=== PATIENT | female | born 1950 ===

== ENCOUNTER 2025-03-22 22:39 | Inpatient (IN) | payer MEDICARE ==
[~2025-03-22] VITALS: Ht 162.6 cm; Wt 55.5 kg
[2025-03-22 23:09] VITALS: BP 139/61
[2025-03-23] VITALS (8 sets, daily range): BP systolic 130–177; BP diastolic 54–86
[2025-03-23] MEDS ORDERED: GABAPENTIN600 MG PO (00:21)
[2025-03-23] MEDS ORDERED: AMLO5 PO (00:22)
[2025-03-23] MEDS ORDERED: JARDIANCE10 MG PO (00:22)
[2025-03-23] MEDS ORDERED: DULO30 PO (00:22)
[2025-03-23] MEDS ORDERED: Prinivil10 MG PO (00:23)
[2025-03-23] MEDS ORDERED: METO50ER PO (00:23)
[2025-03-23] MEDS ORDERED: ATOR80 PO (00:23)
[2025-03-23] MEDS ORDERED: METF500C PO (00:25)
[2025-03-23] MEDS ORDERED: LORA.5 PO (00:26)
[2025-03-23] MEDS ORDERED: ELIQUIS5 M2 PO (00:28)
[2025-03-23] MEDS ORDERED: Vancomycin (Pharmacy Consult) IV SCH (00:35)
[2025-03-23] MEDS ORDERED: Piperacillin/Tazobactam Sod 3.375 GM in NS 100 ML IV SCH (00:45)
[2025-03-23 01:12] LABS: BASOPHILS ABSOLUTE AUTO 0.06 K/mm3 (0.00-0.23); BASOPHILS PERCENT AUTO 1 % (0-2); EOSINOPHILS ABSOLUTE AUTO 0.15 K/mm3 (0.00-0.68); EOSINOPHILS PERCENT AUTO 1 % (0-6); Hematocrit 39.4 % (33.0-51.0); Hemoglobin 12.5 g/dL (11.5-16.0); IMMATURE GRAN ABSOLUTE AUTO 0.04 K/mm3 (0.00-0.10); IMMATURE GRAN PERCENT AUTO 0 % (0-1); LYMPHOCYTES ABSOLUTE AUTO 1.71 K/mm3 (0.84-5.20); LYMPHOCYTES PERCENT AUTO 15 % (21-46); MONOCYTES ABSOLUTE AUTO 0.78 K/mm3 (0.16-1.47); MONOCYTES PERCENT AUTO 7 % (4-13); Mean Corpuscular HGB Conc 31.7 g/dL (31.5-36.5); Mean Corpuscular Volume 93 fL (80-100); NEUTROPHILS ABSOLUTE AUTO 8.62 K/mm3 (1.96-9.15); NEUTROPHILS PERCENT AUTO 76 % (41-73); NRBC ABSOLUTE 0.00 K/mm3 (0.00-0.02); NRBC Auto 0.0 /100 WBC (0.0-0.2); Platelet Count 312 K/mm3 (150-400); RDW Coefficient Variation 16.0 % (11.7-14.2); RDW Standard Deviation 54.6 fL (35.1-46.3)
[2025-03-23 01:38] LABS: Alanine Aminotransfer (ALT/SGP 19.0 U/L (12-78); Albumin, Blood 2.7 g/dL (3.4-5.0); Albumin/Globulin Ratio 0.6 (0.8-1.8); Anion Gap 11.0 mmol/L (3-11); Aspartate Aminotrans (AST/SGOT 32.0 U/L (12-37); Bilirubin, Total 0.6 mg/dL (0.1-1.0); Blood Urea Nitrogen 16.0 mg/dL (8-24); CO2, Blood 27.0 mmol/L (21-32); Calcium, Blood 8.3 mg/dL (8.5-10.1); Chloride, Blood 105.0 mmol/L (98-108); Creatinine, Blood 1.25 mg/dL (0.40-1.00); Globulin, Blood 4.2 g/dL (2.2-4.0); Glucose, Blood 188.0 mg/dL (70-99); Magnesium, Blood 1.9 mg/dL (1.6-2.4); Potassium, Blood 3.6 mmol/L (3.5-5.5); Sodium, Blood 139.0 mmol/L (136-145); Thyroid Stimulating Hormone 9.29 uIU/mL (0.360-4.800); Total Protein, Blood 6.9 g/dL (6.4-8.2)
[2025-03-23] MEDS ORDERED: Piperacillin/Tazobactam Sod 2.25 GM in NS 50 ML IV SCH (01:59)
[2025-03-23] MEDS ORDERED: Polyethylene Glycol 3350 17 gm PO PRN (02:05)
[2025-03-23] MEDS ORDERED: OxyCODONE 5 mg/Acetamin 325 mg TABLET PO PRN (02:05)
[2025-03-23] MEDS ORDERED: Levothyroxine Sodium 0.137 MG Tab PO SCH (06:00)
[2025-03-23] MEDS ORDERED: Insulin Regular 100 UNIT/ML 10ML Vial SC SCH ×2 (06:00→11:30)
--- NOTE | 2025-03-23 07:29 | NUR ---
SHIFT SUMMARY; AFTER ADMIT, PATIENT WAS MADE NPO AT [facility] FOR POSSIBLE SURGERY. TELE SR 70'S. ABLE [place] STAND [place] [facility] PICTURES TAKEN OF BOTH FEET.
[2025-03-23] MEDS ORDERED: NS 250 ML IV PRN (08:15)
[2025-03-23] MEDS ORDERED: DULoxetine HCL 30 MG Cap DR PO SCH (09:00)
[2025-03-23] MEDS ORDERED: Lactobacil 2-S.Thermo-Bifido 1 1 Cap PO SCH (09:00)
[2025-03-23] MEDS ORDERED: EUTHYROX125 MCG PO (11:33)
[2025-03-23] MEDS ORDERED: Coumadin2 MG PO (11:35)
[2025-03-23] MEDS ORDERED: XULTOPHY SC (11:36)
--- NOTE | 2025-03-23 16:01 | NUR ---
SHIFT SUMMARY MS VAIL IS ABLE TO ANSWER ORIENTATION QUESTIONS APPROPRIATELY, SEEMS A LITTLE FORGETFUL TO CONVERSATION AT TIMES. DIET WAS RESTARTED THIS MORNING AFTER SPEAKING WITH DR DAS. PLAN FOR POSSIBLE SURGERY TOMORROW. BLOOD PRESSURE ELEVATED, DR MILLER AWARE, NO NEW ORDERS AT THIS TIME. 1 PERSON ASSIST TO BEDSIDE COMMODE WITH WALKER. FREQUENT STOOL AND URINATION WITH SOME LOOSE STOOL. C/O HEEL PAIN MOSTLY TO RIGHT HEEL. REPOSITIONED AND MEDICATED WITH SOME RELIEF. SHE SMOKES TOBACCO AT HOME, SAID SHE HAS CUT BACK OVER THE PAST FEW MONTHS, NICOTENE PATCH ORDERED AND PLACED. SHE DENIES HAVING ANY IGNITION SOURCES. SHE VERBALISED UNDERSTANDING OF EDUCATION ON FALL PRECAUTIONS AND HAS BEEN USING THE CALL LIGHT APPROPRIATELY. BED LOW, CALL LIGHT IN REACH, BED ALARM ON.
[2025-03-23] MEDS ORDERED: Insulin Glargine-Yfgn 100 Unit/mL 3 ML SYR SC SCH (21:00)
[2025-03-24] VITALS (15 sets, daily range): BP systolic 118–160; BP diastolic 60–87
[2025-03-24] MEDS ORDERED: Insulin Human Lispro 100 Units/ML 3ML Syringe SC SCH (07:30)
[2025-03-24 07:42] LABS: BASOPHILS ABSOLUTE AUTO 0.05 K/mm3 (0.00-0.23); BASOPHILS PERCENT AUTO 1 % (0-2); EOSINOPHILS ABSOLUTE AUTO 0.22 K/mm3 (0.00-0.68); EOSINOPHILS PERCENT AUTO 4 % (0-6); Hematocrit 37.2 % (33.0-51.0); Hemoglobin 11.9 g/dL (11.5-16.0); IMMATURE GRAN ABSOLUTE AUTO 0.01 K/mm3 (0.00-0.10); IMMATURE GRAN PERCENT AUTO 0 % (0-1); LYMPHOCYTES ABSOLUTE AUTO 1.52 K/mm3 (0.84-5.20); LYMPHOCYTES PERCENT AUTO 27 % (21-46); MONOCYTES ABSOLUTE AUTO 0.51 K/mm3 (0.16-1.47); MONOCYTES PERCENT AUTO 9 % (4-13); Mean Corpuscular HGB Conc 32.0 g/dL (31.5-36.5); Mean Corpuscular Volume 91 fL (80-100); NEUTROPHILS ABSOLUTE AUTO 3.42 K/mm3 (1.96-9.15); NEUTROPHILS PERCENT AUTO 60 % (41-73); NRBC ABSOLUTE 0.00 K/mm3 (0.00-0.02); NRBC Auto 0.0 /100 WBC (0.0-0.2); Platelet Count 276 K/mm3 (150-400); RDW Coefficient Variation 15.9 % (11.7-14.2); RDW Standard Deviation 52.5 fL (35.1-46.3)
[2025-03-24 07:58] LABS: Anion Gap 8.0 mmol/L (3-11); Blood Urea Nitrogen 17.0 mg/dL (8-24); CO2, Blood 26.0 mmol/L (21-32); Calcium, Blood 8.4 mg/dL (8.5-10.1); Chloride, Blood 106.0 mmol/L (98-108); Creatinine, Blood 1.03 mg/dL (0.40-1.00); Glucose, Blood 126.0 mg/dL (70-99); Potassium, Blood 3.3 mmol/L (3.5-5.5); Sodium, Blood 137.0 mmol/L (136-145)
--- NOTE | 2025-03-24 11:48 | NUR ---
RN NOTE MS VAIL IS ABLE TO ANSWER ORIENTATION QUESTIONS BUT SHE IS VERY FORGETFUL, FREQUENT REPETATIVE QUESTIONS. 1 PERSON ASSIST UP TO THE BSC. URINATING LESS FREQUENTLY TODAY THAN YESTERDAY (YESTERDAY WAS VERY FREQUENT). NPO THIS AM FOR SURGERY. MINIMAL P[AIN TO FEET THIS MORNING.
--- NOTE | 2025-03-24 11:59 | NUR ---
TO OR VIA WHEELCHAIR
[2025-03-24] MEDS ORDERED: Piperacillin/Tazobactam Sod 3.375 GM in NS 100 ML IV SCH (12:00)
[2025-03-24] MEDS ORDERED: Bupivacaine 0.5% HCl 5 MG/ML 30MLVIAL ONE (12:32)
[2025-03-24] MEDS ORDERED: FentaNYL Citrate 50 MCG/ML 2 ML Injection ONE (12:59)
[2025-03-24] MEDS ORDERED: HYDROmorphone HCl/Pf 1MG SYR IV PRN (13:10)
[2025-03-24] MEDS ORDERED: Albuterol 2.5 MG/3 ML VIAL INH PRN (13:10)
[2025-03-24] MEDS ORDERED: FentaNYL Citrate 50 MCG/ML 2 ML Injection IV PRN ×2 (13:10→13:15)
[2025-03-24] MEDS ORDERED: Ondansetron HCl 2 MG / ML 2ML Vial IV PRN (13:10)
[2025-03-24] MEDS ORDERED: Phenylephrine HCl 100 MCG/ML-NS 10MLSYR (1MG/10ML) ONE (13:14)
[2025-03-24] MEDS ORDERED: Rocuronium Bromide 10 MG/ML 5ML Injection IV ONE (13:14)
[2025-03-24] MEDS ORDERED: Morphine Sulfate 4 MG/1 ML Injection IV PRN (13:15)
[2025-03-24] MEDS ORDERED: Sugammadex Sodium 200 MG/2ML SDV (100 MG/ML) ONE (13:15)
--- NOTE | 2025-03-24 18:21 | NUR ---
SHIFT SUMMARY MS VAIL IS CONSISTANTLY ABLE TO ANSWER ORIENTATION QUESTIONS BUT IS VERY FORGETFUL. SHE REPEATS REQUESTS, FOR EXAMPLE TO SMOKE, WHEN SHE HAS BEEN EDUCATED AND REITERATED ON THE NO SMOKING POLICY AND HAS A NICOTENE PATCH ON HER SKIN. HER CONVERSATION IS CONFUSED AND FORGETFUL. SHE RETURNED FROM OR AT 1420HRS WITH AISHA WRAP DRESSINGS TO BOTH LEGS. MINIMAL TOES EXPOSED. HER TOES ARE COOL TO TOUCH, SHE DENIES NUMBNESS OR TINGLING AND SHE DENIES ANY PAIN. SHE HAS EATEN WELL WITHOUT NAUSEA. SHE HAS VOIDED SINCE SURGERY. LEGS ELEVATED ON A PILLOW IN BED. BED LOW, BED ALARM ON. CALL LIGHT IN REACH.
[2025-03-24 20:42] LABS: Vancomycin, Trough 17.3 ug/mL (5.0-10.0)
[2025-03-25 03:04] VITALS: BP 128/73
[2025-03-25 06:13] LABS: BASOPHILS ABSOLUTE AUTO 0.01 K/mm3 (0.00-0.23); BASOPHILS PERCENT AUTO 0 % (0-2); EOSINOPHILS ABSOLUTE AUTO 0.00 K/mm3 (0.00-0.68); EOSINOPHILS PERCENT AUTO 0 % (0-6); Hematocrit 36.0 % (33.0-51.0); Hemoglobin 11.5 g/dL (11.5-16.0); IMMATURE GRAN ABSOLUTE AUTO 0.02 K/mm3 (0.00-0.10); IMMATURE GRAN PERCENT AUTO 1 % (0-1); LYMPHOCYTES ABSOLUTE AUTO 0.60 K/mm3 (0.84-5.20); LYMPHOCYTES PERCENT AUTO 14 % (21-46); MONOCYTES ABSOLUTE AUTO 0.21 K/mm3 (0.16-1.47); MONOCYTES PERCENT AUTO 5 % (4-13); Mean Corpuscular HGB Conc 31.9 g/dL (31.5-36.5); Mean Corpuscular Volume 91 fL (80-100); NEUTROPHILS ABSOLUTE AUTO 3.54 K/mm3 (1.96-9.15); NEUTROPHILS PERCENT AUTO 81 % (41-73); NRBC ABSOLUTE 0.00 K/mm3 (0.00-0.02); NRBC Auto 0.0 /100 WBC (0.0-0.2); Platelet Count 277 K/mm3 (150-400); RDW Coefficient Variation 15.9 % (11.7-14.2); RDW Standard Deviation 52.7 fL (35.1-46.3)
[2025-03-25 06:38] LABS: Anion Gap 9.0 mmol/L (3-11); Blood Urea Nitrogen 23.0 mg/dL (8-24); CO2, Blood 23.0 mmol/L (21-32); Calcium, Blood 8.5 mg/dL (8.5-10.1); Chloride, Blood 111.0 mmol/L (98-108); Creatinine, Blood 1.14 mg/dL (0.40-1.00); Glucose, Blood 185.0 mg/dL (70-99); Potassium, Blood 4.1 mmol/L (3.5-5.5); Sodium, Blood 139.0 mmol/L (136-145)
[2025-03-25 07:29] VITALS: BP 141/67
[2025-03-25 11:58] VITALS: BP 168/80
--- NOTE | 2025-03-25 13:49 | NUR ---
pt sittin in chair and had removed dressing from lle and was washing incision site with wet napkin.pt states removed because "wants to go up on the hill and smoke" pt denies having any cigarettes or ignition source in room. lle incision cleanse [facility] wound spinning frame cleaner, telfa applied to incision site and wrapped in coban. maria esther wrap placed over coban
[2025-03-25 15:59] VITALS: BP 177/74
[2025-03-25 17:33] VITALS: BP 163/77
--- NOTE | 2025-03-25 18:25 | NUR ---
SHIFT SUMMARY PT STARTED THE DAY A&OX4 ABLE TO ANSWER ORIENTATION QUESTIONS, BUT SLEEPY FROM ATIVAN GIVEN AT 0600. THE DAY PROGRESSED PT GETTING INCREASINGLY MORE CONFUSED AND WAS ORIENTED TO SELF ONLY WITH VISUAL HALUCINATIONS, FIXATED ON GOING OUTSIDE TO SMOKE, YELLING OUT TO DAUGHTERS WHO ARE NOT HERE, AND BEHAVING IMPULSIVELY BY GETTING OUT OF BED AND REMOVING BANDAGES ON TOE AMPUTATION SITE. WOUND CARE DONE, UPDATED PICTURE IN CHART. PT PAIN MANAGED WITH PRN PERCOCET AND TYLENOL. CONT/INC BLADDER AND BOWEL, 1PA TO BSC. RA, SR IN 70S ON TELE, HTN, HOME LISINOPRIL RESUMED. PT TRANSFERRED TO ROOM 345 AT END OF SHIFT, ALL BELONGINGS WITH PT, REPORT GIVEN TO BEAN SEYMOUR.
--- NOTE | 2025-03-25 18:28 | NUR ---
TRANSFER NOTE TOOK OVER PT CARE AT 1828. GOT REPORT FROM [address]. PT EYES CLOSED UNLABORED EVEN RESPIRATIONS. NO ACUTE CHANGES NOTES. PT IN BED, BED IN LOWEST POSITION, CALL LIGHT IN REACH. IV ANTIBIOTIC INFUSING.
[2025-03-25 19:55] VITALS: BP 126/83
[2025-03-26 00:44] VITALS: BP 105/59
--- NOTE | 2025-03-26 03:11 | NUR ---
SHIFT SUMMARY PATIENT HAS APPEARED TO SLEEP COMFORTABLY TONIGHT. SHE HAS BEEN INCONTINENT OF URINE AND IS WEARING AN ATTENDS. SHE IS ORIENTED X3 TONIGHT AND USING HER CALL LIGHT APPROPRIATELY. SHE HAS BEEN MEDICATED FOR PAIN X1 ON THIS SHIFT SO FAR. IV ABX HAVE INFUSED WITHOUT COMPLICATIONS. SHE HAS HER CALL LIGHT WITHIN REACH AND HER BED ALARM IS SET. SAFETY PRECAUTIONS ARE BEING MAINTAINED.
[2025-03-26 04:21] VITALS: BP 145/69
[2025-03-26 05:36] LABS: BASOPHILS ABSOLUTE AUTO 0.04 K/mm3 (0.00-0.23); BASOPHILS PERCENT AUTO 1 % (0-2); EOSINOPHILS ABSOLUTE AUTO 0.13 K/mm3 (0.00-0.68); EOSINOPHILS PERCENT AUTO 2 % (0-6); Hematocrit 38.1 % (33.0-51.0); Hemoglobin 12.2 g/dL (11.5-16.0); IMMATURE GRAN ABSOLUTE AUTO 0.02 K/mm3 (0.00-0.10); IMMATURE GRAN PERCENT AUTO 0 % (0-1); LYMPHOCYTES ABSOLUTE AUTO 1.91 K/mm3 (0.84-5.20); LYMPHOCYTES PERCENT AUTO 25 % (21-46); MONOCYTES ABSOLUTE AUTO 0.57 K/mm3 (0.16-1.47); MONOCYTES PERCENT AUTO 7 % (4-13); Mean Corpuscular HGB Conc 32.0 g/dL (31.5-36.5); Mean Corpuscular Volume 92 fL (80-100); NEUTROPHILS ABSOLUTE AUTO 5.03 K/mm3 (1.96-9.15); NEUTROPHILS PERCENT AUTO 65 % (41-73); NRBC ABSOLUTE 0.00 K/mm3 (0.00-0.02); NRBC Auto 0.0 /100 WBC (0.0-0.2); Platelet Count 301 K/mm3 (150-400); RDW Coefficient Variation 16.1 % (11.7-14.2); RDW Standard Deviation 54.5 fL (35.1-46.3)
[2025-03-26 06:05] LABS: Anion Gap 8.0 mmol/L (3-11); Blood Urea Nitrogen 21.0 mg/dL (8-24); CO2, Blood 27.0 mmol/L (21-32); Calcium, Blood 8.5 mg/dL (8.5-10.1); Chloride, Blood 106.0 mmol/L (98-108); Creatinine, Blood 1.11 mg/dL (0.40-1.00); Glucose, Blood 163.0 mg/dL (70-99); Potassium, Blood 4.0 mmol/L (3.5-5.5); Sodium, Blood 137.0 mmol/L (136-145)
[2025-03-26 07:37] VITALS: BP 127/80
[2025-03-26 13:22] VITALS: BP 139/69
[2025-03-26 19:22] VITALS: BP 118/61
[2025-03-26 20:10] LABS: Vancomycin, Trough 24.8 ug/mL (5.0-10.0)
[2025-03-26] MEDS ORDERED: Insulin Glargine-Yfgn 100 Unit/mL 3 ML SYR SC SCH (21:00)
[2025-03-26 23:43] VITALS: BP 151/75
--- NOTE | 2025-03-27 03:20 | NUR ---
SHIFT SUMMARY PATIENT HAS APPEARED TO SLEEP COMFORTABLY TONIGHT. SHE WAS MEDICATED WITH A PERCOCET AT BEDTIME. PATIENT HAS BEEN ORIENTED X3 TONIGHT. IV ABX HAVE INFUSED WITHOUT COMPLICATIONS. PATIENT HAS HER CALL LIGHT WITHIN REACH AND HER BED ALARM IS SET. SAFETY PRECAUTIONS ARE BEING MAINTAINED.
[2025-03-27 03:38] VITALS: BP 147/71
[2025-03-27 06:56] LABS: Anion Gap 10.0 mmol/L (3-11); Blood Urea Nitrogen 20.0 mg/dL (8-24); CO2, Blood 26.0 mmol/L (21-32); Calcium, Blood 9.1 mg/dL (8.5-10.1); Chloride, Blood 103.0 mmol/L (98-108); Creatinine, Blood 1.22 mg/dL (0.40-1.00); Glucose, Blood 185.0 mg/dL (70-99); Potassium, Blood 3.6 mmol/L (3.5-5.5); Sodium, Blood 135.0 mmol/L (136-145)
[2025-03-27 07:34] VITALS: BP 152/91
[2025-03-27] MEDS ORDERED: CefTRIAXone Sodium 2,000 MG in NS 100 ML IV SCH (09:00)
[2025-03-27 11:43] VITALS: BP 157/94
[2025-03-27 16:01] VITALS: BP 144/86
--- NOTE | 2025-03-27 19:01 | NUR ---
NO CHANGES, GOOD APPETITE, CLEARLY MAKES NEEDS KNOWN, CALL LIGHT WITH IN REACH
[2025-03-27 19:48] VITALS: BP 143/83
--- NOTE | 2025-03-28 03:03 | NUR ---
SHIFT SUMMARY PATIENT HAS APPEARED TO SLEEP COMFORTABLY THROUGHOUT THE NIGHT. SHE HAS BEEN INCONTINENT OF URINE BUT HER PAIN HAS BEEN WELL CONTROLLED WITH PER PRN PERCOCET. PATIENT IS ORIENTED X3. SHE HAS HER CALL LIGHT WITHIN REACH AND HER BED ALARM IS SET. SAFETY PRECAUTIONS ARE BEING MAINTAINED.
[2025-03-28 04:15] VITALS: BP 179/81
[2025-03-28 06:37] LABS: Anion Gap 8.0 mmol/L (3-11); Blood Urea Nitrogen 20.0 mg/dL (8-24); CO2, Blood 28.0 mmol/L (21-32); Calcium, Blood 9.1 mg/dL (8.5-10.1); Chloride, Blood 103.0 mmol/L (98-108); Creatinine, Blood 1.09 mg/dL (0.40-1.00); Glucose, Blood 240.0 mg/dL (70-99); Potassium, Blood 3.6 mmol/L (3.5-5.5); Sodium, Blood 135.0 mmol/L (136-145)
[2025-03-28 07:35] VITALS: BP 179/68
[2025-03-28 15:25] VITALS: BP 139/65
--- NOTE | 2025-03-28 18:18 | NUR ---
SHIFT SUMMARY PT A&OX2-3 W/ CONFUSION AND CALLING OUT AT TIMES, VSS, STAND/PIVOT TO THE BSC W/ ASSIST, TOLERATING PO, VOIDING, AND PAIN MANAGED PER EMAR. WOUND/CARE DRESSING COMPLETED PER ORDER. PT WORKED W/ PHYSICAL THERAPY, SEE THERAPY NOTE. NO OTHER ACUTE CHANGES. CALL LIGHT WITHIN REACH AND CHAIR ALARM ON FOR SAFETY.
[2025-03-28 19:32] VITALS: BP 149/68
[2025-03-28] MEDS ORDERED: Insulin Glargine-Yfgn 100 Unit/mL 3 ML SYR SC SCH (21:00)
--- NOTE | 2025-03-29 04:28 | NUR ---
Shift Summary AOx3, does not know date. Pleasant/cooperative. Patient loudly verbalized need for assistance to use bathroom. She waits patiently and has not been impulsive. Daughter Jennie requested a return call for updates on patient. Phone number is [phone], provided updates and answered questions to the best of my knowledge. Compliant with weight bearing precautions and wearing the surgical boot. 1p stand pivot to commode, patient seems to have urgency with voids. Had some darker small bm's while urinating. Denies n/v, dizziness, shortness of breath. Medicated x 1 for pain with good effect. Pt looking forward to discharge to a SNF.
[2025-03-29 05:34] VITALS: BP 158/75
[2025-03-29 07:11] LABS: Anion Gap 8.0 mmol/L (3-11); Blood Urea Nitrogen 26.0 mg/dL (8-24); CO2, Blood 29.0 mmol/L (21-32); Calcium, Blood 9.2 mg/dL (8.5-10.1); Chloride, Blood 101.0 mmol/L (98-108); Creatinine, Blood 1.13 mg/dL (0.40-1.00); Glucose, Blood 236.0 mg/dL (70-99); Potassium, Blood 3.6 mmol/L (3.5-5.5); Sodium, Blood 134.0 mmol/L (136-145)
[2025-03-29 07:33] VITALS: BP 160/76
[2025-03-29] MEDS ORDERED: Percocet 5-3251 EACH PO (11:22)
[2025-03-29] MEDS ORDERED: MIRALAX17 GM PO (11:23)
[2025-03-29] MEDS ORDERED: VISBIOME 112.51 EACH PO (11:27)
[2025-03-29] MEDS ORDERED: AMOCLA875 PO (11:27)
[2025-03-29 16:38] VITALS: BP 112/75
--- NOTE | 2025-03-29 16:43 | NUR ---
SHIFT SUMMARY: A&OX2-3 THIS SHIFT. PLEASANT AND COOPERATIVE WITH CARE PROVIDED. UP TO CHAIR A FEW TIMES TROUGHOUT SHIFT. PT HAS HAD A GOOD APPETITE THIS SHIFT AND HAS REQUESTED SNACKS MULTIPLE TIMES. DENIES GENERALIZED PAIN AND CHEST PAIN. O2 SATS >90% AND DENIES SHORTNESS OF BREATH. UP IN CHAIR FOR DINNER AT THIS TIME WITH CALL LT NEAR. CHAIR ALARM ON FOR SAFETY.
--- NOTE | 2025-03-29 17:53 | NUR ---
THIS RN CONTACTED PT'S DAUGHTER AT 1300 AND INFORMED HER OF D/C ORDER. DAUGHTER STATED SHE WOULD TALK W/ FAMILY ABOUT TRANSPORTING PT HOME AND CALL BACK W/ TRANSPORTATION PLAN. PT'S DAUGHTER HAS NOT CALLED BACK AT THIS TIME.
[2025-03-29 19:21] VITALS: BP 111/73
--- NOTE | 2025-03-30 04:48 | NUR ---
SHIFT SUMMARY PT HERE FOR OSTEOMYELITIS. SHE HAS BEEN RESTING IN BED COMFORTABLY OVERNIGHT. SHE HAS BEEN AOX3-4, CALM AND COOPERATIVE. SHE HAS HAD EPISODES OF CONFUSION AND FORGETFULNESS, AND SHE HAS NOT CALLED APPROPRIATELY OVERNIGHT. SHE IS BLIND IN R EYE. PT [place] BE[place] [facility] [place] SHE HAS BED ALARM ARMED. PT HAS L 2ND TOE AMPUTATION AND USES BOOT FOR AMBULATION. PT HAS HAD NO COMPLAINTS OVERNIGHT. PT HAD UNEVENTFUL NIGHT.
[2025-03-30 05:21] VITALS: BP 152/87
[2025-03-30 07:25] VITALS: BP 160/84
--- NOTE | 2025-03-30 18:06 | NUR ---
SUMMARY- PT A/O X2-3. LABILE MOODS, MOSTLY PLEASANTLY CONFUSED AND COOPERATIVE. FIRST THING THIS AM PT IMPULSIE SET OFF BED ALARM, SBA TO CHAIR. SAT IN CHAIR ALL DAY AND USED CALL LIGHT FOR ASSIST. HX OF R EYE BLINDNESS, SENSORY BUTTON IN USE HAND HIDE STRETCHER LIGHT. PT BEGAN TO BECOME VERY ANXIOUS ASKING FOR A CIGARETTE MID-AFTERNOON, PT NEAR [place] IN THE SUN AND PT RESTED AND CALMED. MEDICATED X2 WITH PERCOCET FOR L FOOT DISCOMFORT WITH STATED RELEIF. CALLED FAMILY TO DISCUSS PT'S DISCHARGE, DAUGHTER WOODROW IS NOT COMFORTABLE WITH MOM GOING HOME SHE IS BLIND AND HAS NO CAREGIVER. WORKING WIHT SHEAR SCRAPMAN TO WORK OUT A SAFE DISCHARGE. VSS, VOIDING, HAD MULT SOFT FLOATING BM.S TODAY. HIGH BLOOD SUGARS TODAY, MAY HAVE BEEN APPLEJUICE AND MIRILAX THIS AM. PT WAS ABLE TO SPEAK WITH SUNDAYLEXI WOODROW ON THE PHONE. WILL REOPRT TO NISSA SEYMOUR
[2025-03-30 19:16] VITALS: BP 122/76
[2025-03-31 03:13] VITALS: BP 119/88
--- NOTE | 2025-03-31 06:24 | NUR ---
SHIFT SUMMARY PT HERE FOR OSTEOMYLITIS OF L FOOT. SHE HAS BEEN AOX2-3, WITH EPISODES OF CONFUSION AND FORGETFULNESS. PT HAS ALSO BEEN MORE IMPULSIVE TN, ATTEMPTING TO GET OOB A COUPLE TIMES. BED ALARM REMAINS ARMED. PT IS 1PA PIVOT TO BS. PT HAS HAD 1 INCONTINENT EPISODE. PT HAS BEEN MORE ANXIOUS TO GO HOME, AND HAS EXPRESSED FRUSTRATION OVER CURRENT SITUATION. PT HAS L 2ND TOE AMPUTATION AND R 5TH TOE WOUND, WITH WOUND CARE DONE OVERNIGHT. NO ACUTE EVENTS OVERNIGHT.
[2025-03-31 07:21] VITALS: BP 130/76
[2025-03-31 15:58] VITALS: BP 129/65
--- NOTE | 2025-03-31 17:25 | NUR ---
SHIFT SUMMARY NO ACUTE CHANGES, A/Ox3 WITH SOME FORGETFULNESS. PT DENIES PAIN T/O SHIFT, AND DENIES PAIN WITH WOUND CARE. WOUND CARE COMPLETED PER ORDERS. SOME SWELLING NOTED IN R FOOT - ELEVATED IN RECLINER CURRENTLY. 1 ASSIST WITH FWW WITH SURGICAL SHOE ON LEFT FOOT. GOOD ORAL INTAKE. BM TODAY. INSULIN ADMINISTERED PER SLIDING SCALE. PT CURRENTLY RESTING IN RECLINER WITH CHAIR ALARM ON AND CALL LIGHT WITHIN REACH. AWAITING SNF PLACEMENT.
[2025-03-31 19:10] VITALS: BP 123/63
--- NOTE | 2025-04-01 00:38 | NUR ---
NURSES NOTE ASSUMING CARE OF PATIENT AT THIS TIME. SHIFT REPORT HAS BEEN GIVEN. PATIENT APPEARS TO BE SLEEPING COMFORTABLY. BREATHS ARE EVEN AND UNLABORED. BED ALARM IS ON. CALL LIGHT IS WITHIN REACH. SAFETY PRECAUTIONS ARE BEING MAINTAINED.
--- NOTE | 2025-04-01 03:26 | NUR ---
SHIFT SUMMARY PATIENT HAS APPEARED TO SLEEP COMFORTABLY DURING THIS SHIFT. VSS. PATIENT HAS BEEN ORIENTED X3. SHE HAS HER CALL LIGHT WITHIN REACH AND HER BED ALARM IS SET. SAFETY PRECAUTIONS ARE BEING MAINTAINED.
[2025-04-01 03:31] VITALS: BP 127/66
[2025-04-01 07:04] VITALS: BP 141/77
[2025-04-01] MEDS ORDERED: Insulin Glargine-Yfgn 100 Unit/mL 3 ML SYR SC SCH (09:00)
[2025-04-01 09:25] LABS: Anion Gap 6.0 mmol/L (3-11); Blood Urea Nitrogen 25.0 mg/dL (8-24); CO2, Blood 27.0 mmol/L (21-32); Calcium, Blood 9.1 mg/dL (8.5-10.1); Chloride, Blood 103.0 mmol/L (98-108); Creatinine, Blood 0.9 mg/dL (0.40-1.00); Glucose, Blood 258.0 mg/dL (70-99); Potassium, Blood 4.0 mmol/L (3.5-5.5); Sodium, Blood 132.0 mmol/L (136-145)
--- NOTE | 2025-04-01 14:41 | NUR ---
DISCHARGE 1420 PT AOX4, COOPERATIVE, ABLE TO MAKE NEEDS KNOWN. PT IS 1 PERSON ASSIST TO BATHROOM FOR VOIDING. ON ROOM AIR. [employer]. CALLED KASSI AGUILERA AND GAVE REPORT TO "TONY". ALSO INFORMED TONY THAT PT LEFT PHONE BEHIND AT HOSPITAL AND THAT THE WRAPPING MACHINE OPERATOR INFORMED THIS RN THAT THE WRAPPING MACHINE OPERATOR COULD DROP IT OFF AT [facility] AFTER CLOCKING OFF FROM THE HOSPITAL. HARD SCRIPT SENT WITH PT AND TRANSPORT.
== END 2025-04-01 14:25 | disposition home health service (06) | DRG 853 ==
LOC: ER 22:39 → MEDS 22:40 → ER 22:54 → MEDS 22:54 → ENPENDDIS 03-29 11:34 → MEDS 04-01 14:25
PROVIDERS: Internal Medicine; Podiatrist; Student in an Organized Health Care Education/Training Program; ADMIT Internal Medicine
PROC: 3E03329 Introduction of Other Anti-infective into Peripheral Vein, Percutaneous Approach (ICD-10-PCS; 2025-03-24)
PROC: 0JBQ0ZZ Excision of Right Foot Subcutaneous Tissue and Fascia, Open Approach (ICD-10-PCS; principal; 2025-03-24 13:00)
PROC: 0Y6S0Z1 Detachment at Left 2nd Toe, High, Open Approach (ICD-10-PCS; principal; 2025-03-24 13:00)
DX: A41.9 Sepsis, unspecified organism (principal); G93.41 Metabolic encephalopathy; E11.52 Type 2 diabetes mellitus with diabetic peripheral angiopathy with gangrene; E87.1 Hypo-osmolality and hyponatremia; M86.8X8 Other osteomyelitis, other site; L03.116 Cellulitis of left lower limb; L03.115 Cellulitis of right lower limb; M86.8X7 Other osteomyelitis, ankle and foot; E11.69 Type 2 diabetes mellitus with other specified complication; F41.9 Anxiety disorder, unspecified; I25.10 Atherosclerotic heart disease of native coronary artery without angina pectoris; E78.5 Hyperlipidemia, unspecified; L40.9 Psoriasis, unspecified; N18.31 Chronic kidney disease, stage 3a; M48.061 Spinal stenosis, lumbar region without neurogenic claudication; E11.40 Type 2 diabetes mellitus with diabetic neuropathy, unspecified; E83.42 Hypomagnesemia; E11.621 Type 2 diabetes mellitus with foot ulcer; L97.519 Non-pressure chronic ulcer of other part of right foot with unspecified severity; L97.529 Non-pressure chronic ulcer of other part of left foot with unspecified severity; I48.0 Paroxysmal atrial fibrillation; E03.2 Hypothyroidism due to medicaments and other exogenous substances; G89.4 Chronic pain syndrome; E11.65 Type 2 diabetes mellitus with hyperglycemia; E11.22 Type 2 diabetes mellitus with diabetic chronic kidney disease; Z60.2 Problems related to living alone; F17.210 Nicotine dependence, cigarettes, uncomplicated; B95.62 Methicillin resistant Staphylococcus aureus infection as the cause of diseases classified elsewhere; I12.9 Hypertensive chronic kidney disease with stage 1 through stage 4 chronic kidney disease, or unspecified chronic kidney disease; Z95.1 Presence of aortocoronary bypass graft; Z95.5 Presence of coronary angioplasty implant and graft; Z79.01 Long term (current) use of anticoagulants; Z79.4 Long term (current) use of insulin; Z79.890 Hormone replacement therapy; Z79.2 Long term (current) use of antibiotics; Z98.49 Cataract extraction status, unspecified eye; Z98.1 Arthrodesis status; Z79.82 Long term (current) use of aspirin; Z79.899 Other long term (current) drug therapy
CPT/HCPCS: 36415; 73620; 80048; 80053; 80202; 82947; 83735; 84443; 85025; 87070; 87071; 87075; 87077; 87147; 87186; 87205; 88305; 88311; 93005; 93010; 94760; 97110; 97116; 97161; 97530; A9270; J0696; J1815; J2371; J2543; J2704; J3010; J3373; J7050; J7120